=== PATIENT | female | born 1980 | race African-American/Black ===

== ENCOUNTER 2019-08-23 11:35 | Emergency (ER) | payer OTHER ==
[2019-08-23 11:47] VITALS: BP 129/87; PULSE 88; TEMP 98.7; BMI 29.6
[2019-08-23 12:24] LABS: BASO % 0.7 % (0-2.0); EOS % 2.1 % (0-4.5); HEMATOCRIT 37.6 % (32.4-45.2); HEMOGLOBIN 12.3 GM/dl (10.7-15.3); LYMPH % 31.5 % (8-40); MCH 27.9 pg (25.7-33.7); MCHC 32.6 g/dl (32.0-36.0); MEAN CELL VOLUME 85.4 fl (80-96); MEAN PLT VOLUME 7.6 fl (7.5-11.1); MONO % 8.7 % (3.8-10.2); PLATELET COUNT 362 K/MM3 (134-434); RDW 13.2 % (11.6-15.6); WHITE BLOOD COUNT 9.3 K/mm3 (4.0-10.8)
[2019-08-23 12:33] LABS: HCG,QUALITATIVE URINE Positive
[2019-08-23 12:37] LABS: ALBUMIN 3.7 g/dl (3.4-5.0); BILIRUBIN,TOTAL 0.6 mg/dl (0.2-1); CALCIUM 8.7 mg/dl (8.5-10); CREATININE 0.8 mg/dl (0.55-1.3); POTASSIUM 4.2 mmol/L (3.5-5.1); TOT PROT 7.2 g/dl (6.4-8.2)
== END 2019-08-23 14:33 | disposition home or self-care (01) ==
LOC: FER 11:35
DX: O20.0 Threatened abortion (principal); Z3A.08 8 weeks gestation of pregnancy
CPT/HCPCS: 36415; 76817-TC; 80053; 81003; 84702; 84703; 85025; 86850; 86900; 86901; 99284-25

== ENCOUNTER 2019-08-28 11:58 | Day surgery (SDC) | payer OTHER ==
[2019-08-27 09:54] VITALS: BMI 29.6
[2019-08-28] MEDS ORDERED: ONDANSETRON 4 MG/2 ML VIAL IVPUSH PRN (12:43)
[2019-08-28] MEDS ORDERED: oxyCODONE HCL 5 MG TABLET PO PRN ×2 (12:43)
[2019-08-28] MEDS ORDERED: ACETAMINOPHEN 325 MG TABLET (FP) PO PRN (12:43)
[2019-08-28] MEDS ORDERED: LACTATED RINGERS SOLUTION 1,000 ML IV SCH (12:45)
[2019-08-28] MEDS ORDERED: LIDOCAINE HCL/PF 2% SDV 5ML VIAL ONE (13:02)
[2019-08-28] MEDS ORDERED: DEXAMETHASONE SOD PHOSPHATE 4 MG/1 ML VIAL ONE (13:02)
[2019-08-28] MEDS ORDERED: LIDOCAINE HCL 2% JELLY (5 ML/TUBE) ONE (13:02)
[2019-08-28] MEDS ORDERED: ceFAZolin SODIUM 1 GM VIAL ONE (13:02)
[2019-08-28] MEDS ORDERED: MIDAZOLAM HCL 2 MG/2 ML SINGLE DOSE VIAL ONE (13:03)
--- NOTE | 2019-08-28 13:27 | HP ---
Admitting History and Physical - Admission Chief Complaint: Abnormal History of Present Illness: 38 yo diagnosed with Missed AB, is pre op for suction D&C. History Source: Patient Limitations to Obtaining History: No Limitations - Past Medical History ...LMP: 06/24/19 ...: Yes ...Para: 1 - Past Surgical History Past Surgical History: Yes: None - Smoking History Smoking history: Never smoked Have you smoked in the past 12 months: No - Alcohol/Substance Use Hx Alcohol Use: No History of Substance Use: reports: None - Social History Usual Living Arrangement: Yes: With Child History of Recent Travel: No Home Medications - Allergies Allergies/Adverse Reactions: Allergies Allergy/AdvReac Type Severity Reaction Status Date / Time No Known Allergies Allergy Verified 08/23/19 11:40 - Home Medications Home Medications: Ambulatory Orders Vit,Marcio 74/Iron/Folic [ Low Iron Tablet] 1 each PO DAILY 08/23/19 Family Medical History Family History: Unremarkable Review of Systems - Review of Systems Constitutional: reports: No Symptoms Eyes: reports: No Symptoms HENT: reports: No Symptoms Neck: reports: No Symptoms Cardiovascular: reports: No Symptoms Respiratory: reports: No Symptoms Gastrointestinal: reports: No Symptoms Genitourinary: reports: Other Breasts: reports: No Symptoms Reported Musculoskeletal: reports: No Symptoms Integumentary: reports: No Symptoms Neurological: reports: No Symptoms Endocrine: reports: No Symptoms Psychiatric: reports: No Symptoms Pain Intensity: 0 Physical Examination Vital Signs: Vital Signs Temperature 97.8 F 08/28/19 12:17 Pulse Rate 87 08/28/19 12:17 Respiratory Rate 20 08/28/19 12:17 Blood Pressure 116/75 08/28/19 12:17 O2 Sat by Pulse Oximetry (%) 100 08/28/19 12:17 Constitutional: Yes: No Distress Eyes: Yes: Conjunctiva Clear HENT: Yes: Atraumatic Neck: Yes: Supple Cardiovascular: Yes: Regular Rate and Rhythm Respiratory: Yes: Regular Gastrointestinal: Yes: Normal Bowel Sounds Musculoskeletal: Yes: WNL Extremities: Yes: WNL Neurological: Yes: Alert, Oriented ...Motor Strength: WNL Psychiatric: Yes: Alert, Oriented Assessment/Plan Missed AB Pre op for suction D&C Consent signed Anesthesia to see patient
--- NOTE | 2019-08-28 13:56 | OP ---
Operative Note - Note: Operative Date: 08/28/19 Pre-Operative Diagnosis: Missed AB Operation: Suction D&C Findings: Product of conception Post-Operative Diagnosis: Same as Pre-op Surgeon: Katy Wong Anesthesia: General Specimens Removed: Product of conception Estimated Blood Loss (mls): 10
[2019-08-28 16:46] VITALS: BP 117/68
[2019-08-28 17:09] VITALS: PULSE 88; TEMP 98.7
--- NOTE | 2019-09-01 17:17 | OP ---
DATE OF OPERATION: 08/28/2019 PREOPERATIVE DIAGNOSIS: Missed . POSTOPERATIVE DIAGNOSIS: Missed . PROCEDURE: Suction dilation and curettage. SURGEON: Katy Wong MD. ANESTHESIA: General. COMPLICATIONS: None. ESTIMATED BLOOD LOSS: 10 mL. DESCRIPTION OF PROCEDURE: The patient was taken to the operating room, where general anesthesia was administered. Patient was then prepped and draped in proper sterile fashion. She was placed lithotomy position. The weighted speculum was placed in the vagina. The anterior lip of the cervix was grasped with a single-toothed tenaculum, and the cervix was then sequentially dilated with Dave dilator. Then an 8-mm suction curet was uterine cavity. The suction curet was then rotated to clear the uterus of products of conception. The sharp curettage was then performed. Then the curet was then reintroduced to clear the uterus of all remaining products of conception. Once finished, the instruments were removed. The patient was taken out of lithotomy position. She was taken to PACU in stable condition. PATHOLOGY: Products of conception. KATY WONG M.D. [id number]
--- NOTE | 2019-09-02 16:51 | PATH ---
Surgical Pathology Report Patient Name: MONTY MOHAN Med. Rec. #: [id number] /Age/Gender: 1980 (Age: 38) / F Account: [id number] Location: [facility] SURGICAL Taken: 08/28/2019 Received: 09/01/2019 Reported: 09/02/2019 Physicians: Katy Wong M.D. Specimen(s) Received PRODUCTS OF CONCEPTION Clinical History Missed Final Diagnosis PRODUCTS OF CONCEPTION, SUCTION D&C: CHORIONIC VILLI PRESENT, CONSISTENT WITH PRODUCTS OF CONCEPTION. Electronically Signed Adrian Houser M.D. Gross Description Received in formalin labeled "products of conception," is a 9.0 x 6.5 x 0.8 cm aggregate of chahal-brown soft tissue fragments. Villous tissue is identified. No somatic tissue is identified. A Range Ecologist portion is submitted in one cassette. /09/01/2019 saudi/09/01/2019
== END 2019-08-28 17:15 | disposition home or self-care (01) ==
LOC: JASU-SURG 11:58
PROVIDERS: ATTEND Obstetrics & Gynecology
PROC: 10D17ZZ Extraction of Products of Conception, Retained, Via Natural or Artificial Opening (ICD-10-PCS; principal; 2019-08-28 14:00)
DX: O02.1 Missed abortion (principal)
CPT/HCPCS: 88305-TC; 94760